=== PATIENT | male | born 1965 | race Caucasian/White ===

== ENCOUNTER 2016-12-30 19:55 | Emergency (ER) | payer OTHER ==
[2016-12-30] MEDS ORDERED: NS 0.9% 1000 ML* 1,000 ML IV ONE (20:38)
[2016-12-30] MEDS ORDERED: Ondansetron INJ* 2 MG/ML VIAL IV ONE (20:38)
[2016-12-30] MEDS ORDERED: Morphine INJ* 4 MG/ML 1 ML SYRINGE IV ONE ×2 (20:38→23:02)
[2016-12-30 21:17] LABS: Hematocrit 45 % (42-52); Hemoglobin 15.2 g/dl (14.0-18.0); Mean Corpuscular HGB Conc 34 g/dl (31-36); Mean Corpuscular Hemoglobin 32 pg (27-31); Mean Corpuscular Volume 94 fL (80-94); Mean Platelet Volume 9 um3 (7.4-10.4); Red Blood Count 4.79 10^6/ul (4.0-5.4); Red Cell Distribution Width 13 % (10.5-15); White Blood Count 9.5 10^3/ul (3.5-10.8)
[2016-12-30 21:31] LABS: Albumin 4.1 g/dL (3.2-5.2); C Reactive Protein 6.53 mg/L (< 5.00); EGFR African American 100.5 (>60); EGFR Non-African American 78.2 (>60); Globulin 2.8 g/dL (2-4); Potassium 4.1 mmol/L (3.5-5.0); Total Bilirubin 0.3 mg/dL (0.2-1.0); Total Protein 6.9 g/dL (6.4-8.9)
[2016-12-30] MEDS ORDERED: Iohexol 350* (CONTRAST) 500 ML MDV IV ONE (22:09)
[2016-12-30] MEDS ORDERED: Cyclobenzaprine TAB* 10 MG PO ONE (22:51)
[2016-12-30] MEDS ORDERED: oxyCODONE/Acetamin 5/325 MG* TAB PO ONE (22:52)
--- NOTE | 2016-12-30 23:05 | RAD ---
INDICATION: Low back pain with radiation down the left lower extremity after living a heavy box. Reported history includes abdominal aortic aneurysm, lumbar discectomy and vasectomy. COMPARISON: CTA chest abdomen pelvis dated August 12, 2013. TECHNIQUE: Axial source images were acquired of the abdomen and pelvis utilizing CT angiographic technique with injection of 100 mL of Visipaque 320. Coronal and sagittal reconstructed images were acquired. 3-D volume rendered images were obtained. Specific reformats of the lumbar spine were created and independently reviewed as well. FINDINGS: Unless otherwise specified comparisons below reference to August 12, 2013 CT. Vascular findings: Again seen is an infrarenal abdominal aortic aneurysm measuring 3.4 x 3.6 cm in the axial plane, slightly increased from 3.0 x 3.2 cm on the August 12, 2013 CT examination. There is somewhat asymmetric mural thrombus along the left greater than right wall of the infrarenal abdominal aorta. 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 Calcified atherosclerosis is seen at the bilateral iliac arteries but patent flow is documented just beyond the bifurcation of the femoral arteries. Visceral branches: There is a single renal artery and the left and a small immediately inferior accessory right renal artery to the main right renal artery, which all appear adequately patent. The celiac axis, superior mesenteric artery, and inferior mesenteric artery are patent. Nonvascular findings: The visualized lung bases are grossly clear without mass or pleural effusion. The lungs exhibit diffuse centrilobular emphysematous changes with hypoventilatory changes at the bilateral dependent portion of the lower lobes. The liver, spleen, pancreas and adrenal glands are normal. The gallbladder is normal in appearance. On the arterial phase images the renal cortices enhance symmetrically. Evaluation of the gastrointestinal tract is limited without oral contrast. The small and large bowel are not pathologically dilated. The normal appendix is identified in the right lower quadrant measuring 5 mm in diameter (image 119). There are small bilateral fat-containing inguinal hernias. There is no retroperitoneal or mesenteric lymphadenopathy. At the left L5/S1 pars interarticularis there is a defect with well corticated margins (axial image 64 of 71 on the lumbar reformats). This is not appear to cause any significant spondylolisthesis. This finding was present on the previous CT examination. Evaluation of the soft tissues of the lumbar spine is limited with CT examination there is potentially a mild degree of central canal stenosis at L4/L5 due to disc protrusion, thickening of the ligamentum flavum and bilateral facet arthropathy. To a lesser extent a similar appearance is seen at L3/L4. Mild degenerative changes of the lower thoracic and lumbar spine includes loss of intervertebral disc height.. There are no sinister bone lesions or evidence of acute fracture in the visualized bones. IMPRESSION: 1. The abdominal aortic aneurysm with somewhat eccentric mural thrombus adherent to the wall measures 3.4 x 3.6 cm in maximum axial dimension, a small increase from 3.0 x 3.2 cm on the August 12, 2013 CT examination. Regular imaging surveillance of this patient's AAA is advised. 2. There is a small dissection flap at the left common iliac artery, not definitely seen on the previous CT examination, but there is no large, acute appearing abdominal aortic dissection. 3. There are degenerative changes of the lumbar spine that appear to include a mild degree of spinal stenosis at L3/L4 and L4/L5 as well as a stable pars interarticularis defect at the left L5/S1 level. If clinically warranted superior characterization of the soft tissues and there is tissues of the lumbar spine can be obtained with nonemergent MRI of the lumbar spine. 4. There are additional chronic and degenerative changes described in the body the report unlikely to be directly related to the patient's current presentation.
[2016-12-31 00:45] VITALS: BP 126/88
--- NOTE | 2017-01-09 08:41 | ED ---
Gurpreet Fernandez Billy, scribed for Reece Maravilla MD on 12/30/16 at 2033 . Back Pain - HPI Summary HPI Summary: Patient is a 51 year-old male coming to [facility] for evaluation of lower back pain today. He was lifting a heavy box this morning at 1000 when the pain began suddenly with a "ripping" sensation. It radiates down the left leg. Pain in the leg is worse with any attempted movement or weight-bearing of the left leg. He has taken OTC analgesics with little improvement to pain. Patient denies any chest pain. - History of Current Complaint Chief Complaint: EDBackInjuryPain Stated Complaint: LEFT BACK/LEG PAIN Time Seen by Provider: 12/30/16 20:26 Hx Obtained From: Patient Onset/Duration: Sudden Onset, Lasting Hours, Still Present Timing: Constant Back Pain Location: Is Discrete @ - lower back, Radiates To - left leg Severity Initially: Moderate Severity Currently: Moderate Pain Intensity: 10 Pain Scale Used: 0-10 Numeric Aggravating Symptom(s): Movement, Walking Alleviating Symptom(s): Rest Associated Signs And Symptoms: Negative: Bladder Incontinence, Bowel Incontinence - Allergies/Home Medications Allergies/Adverse Reactions: Allergies Allergy/AdvReac Type Severity Reaction Status Date / Time No Known Allergies Allergy Verified 11/10/12 10:56 PMH/Surg Hx/FS Hx/Imm Hx Endocrine/Hematology History: Denies: Hx Diabetes, Hx Thyroid Disease Cardiovascular History: Reports: Hx Aneurysm Denies: Hx Hypertension, Hx Pacemaker/ICD Respiratory History: Denies: Hx Asthma, Hx Chronic Obstructive Pulmonary Disease (COPD) GI History: Denies: Hx Ulcer Musculoskeletal History: Reports: Hx Back Problems Sensory History: Reports: Hx Contacts or Glasses, Hx Hearing Problem Denies: Hx Hearing Aid Opthamlomology History: Reports: Hx Contacts or Glasses Psychiatric History: Denies: Hx Panic Disorder - Surgical History Surgery Procedure, Year, and Place: LUMBAR-DISCECTOMY 2007; VASECTOMY- 2002 Infectious Disease History: Yes Infectious Disease History: Denies: Hx Hepatitis, Hx Human Immunodeficiency Virus (HIV), Traveled Outside the [place] in Last 30 Days - Family History Known Family History: Positive: Diabetes Family History: Strong family history of aneurysms on his mother's side. - Social History Alcohol Use: Weekly Substance Use Type: Reports: None Smoking Status (MU): Heavy Every Day Tobacco Smoker Review of Systems Negative: Chest Pain Musculoskeletal: Other - back pain All Other Systems Reviewed And Are Negative: Yes Physical Exam Triage Information Reviewed: Yes Vital Signs On Initial Exam: Initial Vitals Temp Pulse Resp Pulse Ox 98.3 F 71 18 99 12/30/16 19:58 12/30/16 19:58 12/30/16 19:58 12/30/16 19:58 Vital Signs Reviewed: Yes Appearance: Positive: Well-Appearing, Pain Distress - Moderate pain distress lying down on stretcher. Skin: Positive: Warm, Skin Color Reflects Adequate Perfusion, Dry Head/Face: Positive: Normal Head/Face Inspection Eyes: Positive: EOMI, JACKI Neck: Positive: Supple, Nontender Respiratory/Lung Sounds: Positive: Clear to Auscultation, Breath Sounds Present Cardiovascular: Positive: RRR, Pulses are Symmetrical in both Upper and Lower Extremities - Distal pulses intact, good capillary refill. Abdomen Description: Positive: Soft, Other: - There is minimal left-sided abdominal tenderness. No masses were palpated. Musculoskeletal: Positive: Strength/ROM Intact, Pain @ - Tender to palpation to the left of the mid-lumbar region. Good ROM in the extremities. Pain with movement of left hip. Neurological: Positive: Sensory/Motor Intact, Alert, Oriented to Person Place, Time Psychiatric: Positive: Affect/Mood Appropriate - Fernanda Coma Scale Coma Scale Total: 15 Diagnostics - Vital Signs Vital Signs Temp Pulse Resp BP Pulse Ox 12/30/16 20:00 98.3 F 71 18 137/83 99 12/30/16 19:58 98.3 F 71 18 99 - Laboratory Lab Results: Lab Results 12/30/16 12/30/16 12/30/16 Range/Units 21:10 21:10 21:10 WBC 9.5 (3.5-10.8) 10^3/ul RBC 4.79 (4.0-5.4) 10^6/ul Hgb 15.2 (14.0-18.0) g/dl Hct 45 (42-52) % MCV 94 (80-94) fL MCH 32 H (27-31) pg MCHC 34 (31-36) g/dl RDW 13 (10.5-15) % Plt Count 214 (150-450) 10^3/ul MPV 9 (7.4-10.4) um3 Neut % (Auto) 63.6 (38-83) % Lymph % (Auto) 22.8 L (25-47) % [place] % (Auto) 8.3 (1-9) % Eos % (Auto) 2.1 (0-6) % Baso % (Auto) 3.2 H (0-2) % Absolute Neuts (auto) 6.0 (1.5-7.7) 10^3/ul Absolute Lymphs (auto) 2.2 (1.0-4.8) 10^3/ul Absolute Monos (auto) 0.8 (0-0.8) 10^3/ul Absolute Eos (auto) 0.2 (0-0.6) 10^3/ul Absolute Basos (auto) 0.3 H (0-0.2) 10^3/ul Absolute Nucleated RBC 0.01 10^3/ul Nucleated RBC % 0.1 INR (Anticoag Therapy) 0.91 (0.89-1.11) APTT 32.3 (26.0-36.3) seconds Sodium 137 (133-145) mmol/L Potassium 4.1 (3.5-5.0) mmol/L Chloride 107 (101-111) mmol/L Carbon Dioxide 22 (22-32) mmol/L Anion Gap 8 (2-11) mmol/L BUN 15 (6-24) mg/dL Creatinine 1.00 (0.67-1.17) mg/dL Est GFR ( Amer) 100.5 (>60) Est GFR (Non-Af Amer) 78.2 (>60) BUN/Creatinine Ratio 15.0 (8-20) Glucose 93 (70-100) mg/dL Lactic Acid (0.5-2.0) mmol/L Calcium 9.0 (8.6-10.3) mg/dL Total Bilirubin 0.30 (0.2-1.0) mg/dL AST 17 (13-39) U/L ALT 19 (7-52) U/L Alkaline Phosphatase 87 (34-104) U/L C-Reactive Protein 6.53 H (< 5.00) mg/L Total Protein 6.9 (6.4-8.9) g/dL Albumin 4.1 (3.2-5.2) g/dL Globulin 2.8 (2-4) g/dL Albumin/Globulin Ratio 1.5 (1-3) Lipase 32 (11.0-82.0) U/L 12/30/16 Range/Units 21:10 WBC (3.5-10.8) 10^3/ul RBC (4.0-5.4) 10^6/ul Hgb (14.0-18.0) g/dl Hct (42-52) % MCV (80-94) fL MCH (27-31) pg MCHC (31-36) g/dl RDW (10.5-15) % Plt Count (150-450) 10^3/ul MPV (7.4-10.4) um3 Neut % (Auto) (38-83) % Lymph % (Auto) (25-47) % [place] % (Auto) (1-9) % Eos % (Auto) (0-6) % Baso % (Auto) (0-2) % Absolute Neuts (auto) (1.5-7.7) 10^3/ul Absolute Lymphs (auto) (1.0-4.8) 10^3/ul Absolute Monos (auto) (0-0.8) 10^3/ul Absolute Eos (auto) (0-0.6) 10^3/ul Absolute Basos (auto) (0-0.2) 10^3/ul Absolute Nucleated RBC 10^3/ul Nucleated RBC % INR (Anticoag Therapy) (0.89-1.11) APTT (26.0-36.3) seconds Sodium (133-145) mmol/L Potassium (3.5-5.0) mmol/L Chloride (101-111) mmol/L Carbon Dioxide (22-32) mmol/L Anion Gap (2-11) mmol/L BUN (6-24) mg/dL Creatinine (0.67-1.17) mg/dL Est GFR ( Amer) (>60) Est GFR (Non-Af Amer) (>60) BUN/Creatinine Ratio (8-20) Glucose (70-100) mg/dL Lactic Acid 1.2 (0.5-2.0) mmol/L Calcium (8.6-10.3) mg/dL Total Bilirubin (0.2-1.0) mg/dL AST (13-39) U/L ALT (7-52) U/L Alkaline Phosphatase (34-104) U/L C-Reactive Protein (< 5.00) mg/L Total Protein (6.4-8.9) g/dL Albumin (3.2-5.2) g/dL Globulin (2-4) g/dL Albumin/Globulin Ratio (1-3) Lipase (11.0-82.0) U/L Result Diagrams: 12/30/16 21:10 12/30/16 21:10 Lab Statement: Any lab studies that have been ordered have been reviewed, and results considered in the medical decision making process. Back Pain Course/Dx - Course Course Of Treatment: NO CRITICAL CARE TIME Assessment/Plan: DISCHARGE HOME STABLE. - Diagnoses Provider Diagnoses: Low back pain, Sciatica Discharge - Discharge Plan Condition: Stable Disposition: HOME Prescriptions: Cyclobenzaprine TAB* [Flexeril 10 MG TAB*] 10 mg PO TID PRN #15 tab MDD 3 PRN Reason: Pain oxyCODONE/Acetamin 5/325 MG* [Percocet 5/325 TAB*] 1 tab PO Q4H PRN #20 tab MDD 6 PRN Reason: Pain Patient Education Materials: Sciatica (ED), Acute Low Back Pain (ED) Referrals: Lexis Ji [Primary Care Provider] - Additional Instructions: FOLLOW UP WITH YOUR DOCTOR. RETURN TO THE EMERGENCY DEPARTMENT FOR ANY WORSENING OF YOUR CONDITION; PAIN, WEAKNESS, NUMBNESS, DIFFICULTY CONTROLLING BOWEL OR BLADDER OR QUESTIONS OR CONCERNS. The documentation as recorded by the Gurpreet guy Billy accurately reflects the service I personally performed and the decisions made by me, Reece Maravilla MD.
== END 2016-12-30 23:45 | disposition home or self-care (01) ==
LOC: ED 19:55
DX: M54.42 Lumbago with sciatica, left side (principal); F17.210 Nicotine dependence, cigarettes, uncomplicated; M79.605 Pain in left leg
CPT/HCPCS: 36415; 72131; 74174; 80053; 83605; 83690; 85025; 85610; 85730; 86140; 96361; 96374; 96375; 96376; 99282; A9270-GY; J2270; J2405; Q9967

== ENCOUNTER 2017-09-27 22:03 | Emergency (ER) | payer OTHER ==
[2017-09-28] MEDS ORDERED: Diazepam TAB(*) 5 MG PO ONE (01:20)
[2017-09-28] MEDS ORDERED: Meclizine TAB* 12.5 MG PO ONE (01:20)
[2017-09-28 01:54] LABS: ABS Basophils 0.1 10^3/ul (0-0.2); ABS Eosinophils 0.2 10^3/ul (0-0.6); ABS Monocytes 0.6 10^3/ul (0-0.8); ABS Neutrophils 3.1 10^3/ul (1.5-7.7); ABS Nucleated RBC 0 10^3/ul; Eosinophil % 2.5 % (0-6); Hematocrit 39 % (42-52); Hemoglobin 13.6 g/dl (14.0-18.0); Lymphocyte % 43.3 % (25-47); Mean Corpuscular HGB Conc 35 g/dl (31-36); Mean Corpuscular Hemoglobin 33 pg (27-31); Mean Corpuscular Volume 95 fL (80-94); Mean Platelet Volume 8 um3 (7.4-10.4); Nucleated Red Blood Cells % 0.2; Platelet Count 214 10^3/ul (150-450); Red Blood Count 4.13 10^6/ul (4.0-5.4); Red Cell Distribution Width 13 % (10.5-15)
[2017-09-28 02:10] LABS: EGFR Non-African American 100.7 (>60)
[2017-09-28] MEDS ORDERED: Amoxicillin/Clavulanate TAB* 875 MG PO ONE (04:04)
[2017-09-28 05:02] VITALS: BP 134/84
--- NOTE | 2017-09-28 19:04 | RAD ---
INDICATION: Dizziness COMPARISON: CT of the brain May 06, 2013 TECHNIQUE: Contiguous axial sections of the brain were obtained from the skull base to the vertex without contrast. FINDINGS: The ventricles, cisterns and sulci are within normal limits. The duong-white matter differentiation is adequately maintained and there is no sulcal effacement. No significant focal abnormality or mass effect is present. There is no evidence for intracranial hemorrhage. No significant focal osseous abnormality is present. The visualized portion of the paranasal sinuses appear clear. The mastoid air cells are well aerated bilaterally. IMPRESSION: Normal CT of the brain.
--- NOTE | 2017-09-28 19:06 | RAD ---
INDICATION: Dizziness and sinus congestion COMPARISON: None TECHNIQUE: Contiguous axial sections of the axial images of the sinuses were obtained and reconstructed in the coronal and sagittal planes. FINDINGS: There is mild to moderate mucosal thickening of the left maxillary sinus. There is a small focus of inspissated secretion in the right maxillary sinus. The sphenoid sinus, ethmoid air cells and frontal sinuses are adequately aerated. Left ostiomeatal complex is opacified. The right ostiomeatal complex is patent. There is mild deviation of the nasal septum toward the right side. The nasal passageways were otherwise clear. IMPRESSION: Mild maxillary sinus mucosal disease more severely affecting the left than the right.
--- NOTE | 2017-10-10 06:42 | ED ---
Kvng Fernandez Tecjoon, scribed for Markus Riley MD on 09/28/17 at 0118 . Dizziness - HPI Summary HPI Summary: This patient is a 52 year old male presenting to [facility] accompanied by with a chief complaint of dizziness and lightheadedness since 3 days ago. Patient states that the sx occurred suddenly. The pain is rated 0/10 in severity. Symptoms aggravated by exertion and head movement. Symptoms alleviated by nothing. The patient treated the sx with Tylenol at around 2100. Patient additionally reports earache, lightheadedness, dizziness, slight nasal congestion. Patient denies leg pain. Patient is currently under recovery from a c3-c4 surgery on August 15, 2017. - History Of Current Complaint Chief Complaint: EDDizziness Stated Complaint: LOWER BODY TEMP/RT EAR AND NECK PAIN Hx Obtained From: Patient Onset/Duration: Still Present, Resolved Timing: Constant Severity Initially: Moderate Severity Currently: Moderate Character: Lightheaded, Dizzy Aggravating Factor(s): Exertion, Change In Head Position Alleviating Factor(s): Nothing Associated Signs And Symptoms: Positive: Negative - leg pain, Other: - earache, lightheadedness, dizziness, slight nasal congestion - Allergies/Home Medications Allergies/Adverse Reactions: Allergies Allergy/AdvReac Type Severity Reaction Status Date / Time No Known Allergies Allergy Verified 09/28/17 00:29 PMH/Surg Hx/FS Hx/Imm Hx Previously Healthy: No Endocrine/Hematology History: Denies: Hx Diabetes, Hx Thyroid Disease Cardiovascular History: Reports: Hx Aneurysm Denies: Hx Hypertension, Hx Pacemaker/ICD Respiratory History: Denies: Hx Asthma, Hx Chronic Obstructive Pulmonary Disease (COPD) GI History: Denies: Hx Ulcer Musculoskeletal History: Reports: Hx Back Problems Sensory History: Reports: Hx Contacts or Glasses, Hx Hearing Problem Denies: Hx Hearing Aid Opthamlomology History: Reports: Hx Contacts or Glasses Psychiatric History: Denies: Hx Panic Disorder - Surgical History Surgery Procedure, Year, and Place: LUMBAR-DISCECTOMY 2007; VASECTOMY- 2002 - Immunization History Date of Tetanus Vaccine: utd Date of Influenza Vaccine: 2015 Infectious Disease History: No Infectious Disease History: Denies: Hx Hepatitis, Hx Human Immunodeficiency Virus (HIV), Traveled Outside the [place] in Last 30 Days - Family History Known Family History: Positive: Diabetes Family History: Strong family history of aneurysms on his mother's side. - Social History Occupation: Employed Full-time Lives: With Family Alcohol Use: Rare Substance Use Type: Reports: None Smoking Status (MU): Heavy Every Day Tobacco Smoker Review of Systems Negative: Fever Positive: Ear Ache, Other - slight nasal congestion Musculoskeletal: Negative - leg pain Neurological: Other - dizziness, lightheadedness All Other Systems Reviewed And Are Negative: Yes Physical Exam - Summary Physical Exam Summary: Appearance: Well-appearing, Well-nourished Skin: Warm Eyes: Normal ENT: Normal Neck: no carotid bruits. Nontender surgical site, well healed. No evidence of infections Respiratory: Clear to auscultation Cardiovascular: Normal S1, S2. No murmurs. Normal distal pulses in tibial and radial bilaterally. Abdomen: Soft, nontender Musculoskeletal: Normal, Strength/ROM Intact Neurological: Normal, A&Ox3. no evidence of nystagmus, normal coordination from finger to nose, walking normally in ED. Cranial nerve 2-12 intact. Psychiatric: Normal Triage Information Reviewed: Yes Vital Signs On Initial Exam: Initial Vitals Temp Pulse Resp BP Pulse Ox 97.9 F 60 14 125/86 98 09/27/17 22:26 09/27/17 22:26 09/27/17 22:26 09/27/17 22:26 09/27/17 22:26 Vital Signs Reviewed: Yes Diagnostics - Vital Signs Vital Signs Temp Pulse Resp BP Pulse Ox 09/27/17 22:26 97.9 F 60 14 125/86 98 - Laboratory Lab Results: Lab Results 09/28/17 09/28/17 09/28/17 Range/Units 01:30 01:30 02:57 WBC 7.0 (3.5-10.8) 10^3/ul RBC 4.13 (4.0-5.4) 10^6/ul Hgb 13.6 L (14.0-18.0) g/dl Hct 39 L (42-52) % MCV 95 H (80-94) fL MCH 33 H (27-31) pg MCHC 35 (31-36) g/dl RDW 13 (10.5-15) % Plt Count 214 (150-450) 10^3/ul MPV 8 (7.4-10.4) um3 Neut % (Auto) 44.3 (38-83) % Lymph % (Auto) 43.3 (25-47) % [place] % (Auto) 8.8 (1-9) % Eos % (Auto) 2.5 (0-6) % Baso % (Auto) 1.1 (0-2) % Absolute Neuts (auto) 3.1 (1.5-7.7) 10^3/ul Absolute Lymphs (auto) 3.0 (1.0-4.8) 10^3/ul Absolute Monos (auto) 0.6 (0-0.8) 10^3/ul Absolute Eos (auto) 0.2 (0-0.6) 10^3/ul Absolute Basos (auto) 0.1 (0-0.2) 10^3/ul Absolute Nucleated RBC 0 10^3/ul Nucleated RBC % 0.2 Sodium 139 (133-145) mmol/L Potassium 4.0 (3.5-5.0) mmol/L Chloride 109 (101-111) mmol/L Carbon Dioxide 25 (22-32) mmol/L Anion Gap 5 (2-11) mmol/L BUN 9 (6-24) mg/dL Creatinine 0.80 (0.67-1.17) mg/dL Est GFR ( Amer) 129.6 (>60) Est GFR (Non-Af Amer) 100.7 (>60) BUN/Creatinine Ratio 11.3 (8-20) Glucose 90 (70-100) mg/dL Calcium 9.1 (8.6-10.3) mg/dL Total Bilirubin 0.40 (0.2-1.0) mg/dL AST 16 (13-39) U/L ALT 21 (7-52) U/L Alkaline Phosphatase 84 (34-104) U/L Total Protein 6.6 (6.4-8.9) g/dL Albumin 4.1 (3.2-5.2) g/dL Globulin 2.5 (2-4) g/dL Albumin/Globulin Ratio 1.6 (1-3) TSH 6.39 H (0.34-5.60) mcIU/mL Influenza A (Rapid) Negative (Negative) Influenza B (Rapid) Negative (Negative) Result Diagrams: 09/28/17 01:30 09/28/17 01:30 Lab Statement: Any lab studies that have been ordered have been reviewed, and results considered in the medical decision making process. - CT CT Head CT Interpretation: Positive (See Comments) - CT Head reveals, per radiologist, IMPRESSION: None sinusitis. ED physician has reviewed this radiology report. CT Interpretation Completed By: Radiologist CT Sinus CT Interpretation: Positive (See Comments) - CT Sinus reveals, per radiologist, IMPRESSION: Chronic left maxillary sinusitis. ED physician has reviewed this radiology report. CT Interpretation Completed By: Radiologist - EKG 0128 Cardiac Rate: NL EKG Rhythm: Sinus Rhythm - 59 BPM EKG Interpretation: NSR (59 BPM), No ischemic ST changes, no ectopy. Dizzy Course/Dx - Diagnoses Provider Diagnoses: Sinusitis, Vertigo Discharge - Discharge Plan Condition: Improved Disposition: HOME Prescriptions: Amoxicillin/Clavulanate TAB* [Augmentin TAB 875*] 875 mg PO BID #14 tab Diazepam TAB(*) [Valium TAB(*)] 5 mg PO BID PRN #10 tab MDD 2 TAB PRN Reason: Dizziness Meclizine TAB* [Antivert 12.5 TAB*] 25 mg PO TID PRN #12 tab PRN Reason: Dizziness Patient Education Materials: Sinusitis (ED), Vertigo (ED) Forms: *Work Release Referrals: Lexis Ji [Primary Care Provider] - Michael Marsh MD [Medical Doctor] - Additional Instructions: PLEASE MAKE AN APPOINTMENT TO FOLLOW UP WITH YOUR SURGEON WITHIN 2 WEEKS PLEASE MAKE AN APPOINTMENT FIRST THING IN THE MORNING TO BE SEEN BY AN ENT PHYSICIAN WITHIN 1 WEEK PLEASE RETURN IMMEDIATELY TO THE ER IF YOU HAVE ANY WORSENING OR CONCERNING SYMPTOMS PLEASE MAKE AN APPOINTMENT TO BE SEEN BY YOUR PRIMARY CARE DOCTOR WITHIN 1 WEEK The documentation as recorded by the Kvng guy Tecjoon accurately reflects the service I personally performed and the decisions made by me, Markus Riley MD.
== END 2017-09-28 04:20 | disposition home or self-care (01) ==
LOC: ED 22:03
DX: J32.9 Chronic sinusitis, unspecified (principal); R42 Dizziness and giddiness; Z72.0 Tobacco use
CPT/HCPCS: 36415; 70450; 70486; 80053; 84443; 85025; 87502; 93005; 99283; A9270-GY

== ENCOUNTER → 2019-10-13 09:19 | Day surgery (SDC) | payer OTHER ==
[~2019-10-13 09:19] MED LIST: Atracurium* 10 MG/ML 10 ML VIAL ONE; Buffered Lidocaine 1% SYRIN* 1 ML/SYRINGE INTRADERM ONE; Dexamethasone IV* 4 MG/ML 1 ML (4 MG) IV SLOW PU ONE; Dexamethasone IV* 4 MG/ML 1 ML (4 MG) ONE; DiMENhydriNATE IV* 50 MG/ML VIAL IV PUSH PRN; EPHEDrine (Pressors)* 50 MG/ML VIAL ONE; EPINEPHRINE 1 MG/ML 1 ML VIAL ONE; Famotidine IV* 10 MG/ML 2 ML (20 mg) IV ONE; Famotidine IV* 10 MG/ML 2 ML (20 mg) ONE; HYDROmorphone INJ1* 1 MG/ML SYRINGE IV PRN; Lactated Ringers 1000 ML Bag* 1,000 ML IV SCH; Levalbuterol 0.63MG/3ML NEB* UNIT OF USE INH ONE; Lidocaine 2% PF * 5 ML VIAL ONE; Midazolam* 1 MG/ML 5 ML VIAL (5 MG) ONE; Naloxone* 0.4 MG/ML 1 ML VIAL IV PRN; Ondansetron INJ* 2 MG/ML VIAL IV PRN; Ondansetron INJ* 2 MG/ML VIAL ONE; Propofol* 10 MG/ML 20 ML BTL ONE; ROPIVACAINE 5 MG/ML 30 ML BTL (0.5%) ONE; ceFAZolin 2 GM in NS PREMIX(*) 2 GM/100 ML BAG IVPB ONE; fentaNYL* 50 MCG/ML 2 ML VIAL (100 MCG VIAL) ONE; fentaNYL* 50 MCG/ML 5 ML VIAL (250 MCG VIAL) ONE; oxyCODONE/Acetamin 5/325 MG* TAB ONE
[2019-10-13] MEDS: fentaNYL* 50 MCG/ML 2 ML VIAL (100 MCG VIAL) IV PRN ×2 (12:57→13:33)
[2019-10-13] MEDS: oxyCODONE/Acetamin 5/325 MG* TAB PO PRN ×2 (13:32→13:34)
[2019-10-13 14:39] VITALS: BP 130/84
--- NOTE | 2019-10-13 22:56 | OP ---
DATE OF OPERATION: 10/13/19 - [facility] DATE OF : 61 SURGEON: Les Barraza MD INTERFACE ANALYST: MINI Mcbride. A PA was required for the length of the procedure for assistance with the patient positioning, instrumentation, and closure. ANESTHESIOLOGIST: Dr. Martinez. ANESTHESIA: General anesthesia, regional interscalene block anesthesia. PRE-OP DIAGNOSES: 1. Right shoulder rotator cuff tendon tear, supraspinatus, full thickness. 2. Right shoulder subacromial impingement and bursitis. 3. Right shoulder acromioclavicular joint osteoarthritis. 4. Right shoulder likely superior labral tear. 5. Right shoulder paralabral cyst, posterosuperior. POST-OP DIAGNOSES: 1. Right shoulder rotator cuff tendon tear, supraspinatus, high grade, partial thickness supraspinatus anterior. 2. Right shoulder subacromial impingement and bursitis. 3. Right shoulder acromioclavicular joint osteoarthritis. 4. Right shoulder superior labral tear. 5. Right shoulder paralabral cyst, posterosuperior. OPERATIVE PROCEDURE: 1. Right shoulder arthroscopic rotator cuff tendon repair, single row. 2. Right shoulder arthroscopic subacromial decompression. 3. Right shoulder arthroscopic distal clavicle resection. 4. Right shoulder arthroscopic extensive debridement including release of biceps tendon long head, debridement of paralabral cyst, debridement of superior labrum, and debridement of significant subacromial bursal tissue. INDICATIONS: The patient is a 54-year-old man, right-hand dominant economics instructor, who smokes half a pack per day and has an abdominal aortic aneurysm, who had persistent right shoulder pain, insufficiently responsive to nonoperative management, who opted for surgery. I discussed risks and potential complications. ANTIBIOTICS: Ancef 2 g IV. IV FLUIDS: See Anesthesia note. WNCK-HG-AOXY TIME: 83 minutes. SPECIMEN: None. IMPLANTS: [employer] Corkscrew 5.5-mm suture anchor, double loaded with suture tape. COMPLICATIONS: None. ESTIMATED BLOOD LOSS: Minimal. DESCRIPTION OF PROCEDURE: In preoperative holding, the patient signed a written consent. Operative extremity was marked in the preoperative holding. The patient underwent a regional interscalene nerve block by Dr. Martinez in preoperative holding. The patient was taken back to the operating room and placed supine on the operating room table. Sedated and intubated. Converted into the lateral decubitus position. Right shoulder up. Beanbag hardened. Axillary roll. All bony prominences padded. Longitudinal traction of right shoulder with the appropriate amount of abduction and forward flexion. 15 pounds. Right shoulder prepped and draped. Surgical time-out performed. Spinal needle entered into glenohumeral joint from posterior. 30 cc infused. Established posterior glenohumeral joint portal using standard technique. Started diagnostic arthroscopy. No significant articular cartilage damage. No rotator cuff tendon tear visible. Established in the anterior glenohumeral joint portal under direct visualization. The patient clearly had a superior labral tear. This was probed and found to be unstable with an arthroscopic probe. I entered scissors from anterior and cut the biceps near its origin. I then debrided the superior and posterosuperior labrum with an arthroscopic shaver. I then decompressed the patient's paralabral cyst. I did so working both from anterior and posterior. I placed both arthroscopic shaver and spinal needle between glenoid and labrum. I also decompressed the cyst more directly, medial to the labrum tissue. There appeared to be some color changes in the fluid representing escaping cyst fluid. There was not any supraspinatus undersurface tear visible. I marked the anterior most aspect of the supraspinatus with a spinal needle from above. I did so because this is where the tear was present on preoperative imaging. I removed instruments and fluid from glenohumeral joint. I established anterior and posterior subacromial portals. The amount of subacromial bursitis tissue was very significant. This was one of the most traumatic findings of the operation. This was very thick bursal tissue. I established lateral and then posterolateral portals and debrided bursal tissue with an arthroscopic shaver. I next localized where in the rotator cuff, I marked with a spinal needle and probed it. There was a clear rotator cuff tear present, bursal sided. I probed the tear. I established a new lateral portal to improve my visualization of it. The patient did not have a full-thickness tear, but it was clearly high grade partial thickness. I considered a biologic patch, but given the larger higher grade nature of this partial tear, I opted instead for a suture anchor repair. Through a superolateral portal, placed rotator cuff anchor. I would say it was in the minimal from medial to lateral on the footprint. I placed 2 horizontal mattress stitches in the rotator cuff using a retrograde suture passer, Scorpion. I passed all sutures and then tied them. This produced an excellent repair. It looked anatomic. Stable to movement of the humerus and to probing. I started my subacromial decompression prior to the rotator cuff repair, but I performed more of it afterwards. I smoothed out the undersurface of the anterior acromion removing lateral and then anterolateral acromial spurs. This nicely flattened out the undersurface. I moved to the AC joint. I removed synovitic tissue with cautery device. The patient had very prominent osteophytes both on the acromion and on the clavicular side of the AC joint. I debrided these with arthroscopic bur. I removed 8 mm at the end of the clavicle, at least. I next closed. A [id number] and 12 stitches using nylon 3-0 suture. Xeroform, 4x4s, ABD, and foam tape. Sling and abduction pillow. Cooling unit. The patient awakened, extubated, and transferred to the PACU. DISPOSITION: The patient will wear the sling at all times, day and night. Percocet as needed for pain control. The patient will follow up with me in 10 to 14 days postoperatively. The patient will not begin physical therapy until 4 to 6 weeks postoperatively. [id number] #: [id number] MELODIED
== END | disposition home or self-care (01) ==
LOC: OR 09:19
PROVIDERS: ATTEND Orthopaedic Surgery
DX: M75.111 Incomplete rotator cuff tear or rupture of right shoulder, not specified as traumatic (principal); M75.41 Impingement syndrome of right shoulder; M75.51 Bursitis of right shoulder; M19.011 Primary osteoarthritis, right shoulder; M24.811 Other specific joint derangements of right shoulder, not elsewhere classified; G89.18 Other acute postprocedural pain; F17.210 Nicotine dependence, cigarettes, uncomplicated; I71.4 Abdominal aortic aneurysm, without rupture
CPT/HCPCS: A9270-GY; C1713; J0690; J1100; J2250; J2405; J2704; J2795; J3010